=== PATIENT | female | born 1980 | race Caucasian/White ===

== ENCOUNTER 2020-01-08 08:33 | Emergency (ER) | payer MEDICAID ==
[~2020-01-08] VITALS: Ht 162.6 cm; Wt 88.5 kg
[2020-01-08] MEDS ORDERED: HYDROcodone/acetaminophen 10/325mg tab PO ONE (09:05)
[2020-01-08 09:35] LABS: BASOPHILS # (AUTO) 0.1 X10'3 (0-0.2); EOSINOPHILS # (AUTO) 0.1 X10'3 (0-0.9); HEMOGLOBIN 13.5 g/dl (12.0-16.0); LYMPHOCYTES # (AUTO) 1.5 X10'3 (1.1-4.8); MEAN CORPUSCULAR HEMOGLOBIN 30.7 PG (27.0-31.0); MEAN CORPUSCULAR HGB CONC 33.9 g/dL (33.0-36.5); MEAN PLATELET VOLUME 8.9 FL (7.4-10.4); WHITE BLOOD COUNT 6.6 X10'3 (4.5-11.0)
[2020-01-08 09:37] LABS: BASOPHILS % (AUTO) 0.8 % (0-1); EOSINOPHILS % (AUTO) 1.7 % (0-6); HEMATOCRIT 39.9 % (35.0-45.0); LYMPHOCYTES % (AUTO) 22.5 % (21-51); MEAN CORPUSCULAR VOLUME 90.5 FL (78-98); MONOCYTES # (AUTO) 0.4 X10'3 (0-0.9); MONOCYTES % (AUTO) 6.7 % (2-12); NEUTROPHILS # (AUTO) 4.5 X10'3 (1.8-7.7); NEUTROPHILS % (AUTO) 68.3 % (42-75); PLATELET COUNT 213 X10'3 (140-440); RED BLOOD COUNT 4.41 X10'6 (4.20-5.60); RED CELL DISTRIBUTION WIDTH 13.7 % (11.5-14.5)
[2020-01-08 09:53] LABS: ALANINE AMINOTRANSFERASE 16 U/L (12-78); ALBUMIN 3.8 G/DL (3.4-5.0); ALBUMIN/GLOBULIN RATIO 1.2 (1.1-1.5); ALKALINE PHOSPHATASE 58 IU/L (46-116); ANION GAP 7 (8-16); ASPARTATE AMINO TRANSFERASE 13 U/L (10-37); BILIRUBIN,TOTAL 0.3 MG/DL (0.1-1.0); BLOOD UREA NITROGEN 14 MG/DL (7-18); BUN/CREATININE RATIO 20.9 (6.6-38.0); CALCIUM 8.3 MG/DL (8.5-10.1); CHLORIDE 106 MMOL/L (99-107); CREATININE 0.67 MG/DL (0.40-0.90); GLUCOSE 92 MG/DL (70-104); SODIUM 139 MMOL/L (135-145); TOTAL CARBON DIOXIDE 25.8 MMOL/L (24-32); TOTAL PROTEIN 7.1 G/DL (6.4-8.2); eGFR > 90 ML/MIN
[2020-01-08 09:59] LABS: CLARITY,URINE SLIGHTLY CLOUDY (Clear); COLOR,URINE YELLOW (Yellow); GLUCOSE, URINE NEGATIVE (Neg); KETONES,URINE NEGATIVE (Neg); LEUKOCYTE ESTERASE ,URINE NEGATIVE (Neg); NITRITES, URINE NEGATIVE (Neg); OCCULT BLOOD,URINE MODERATE (Neg); PH,URINE 7.5 (4.8-8.0); PROTEIN,URINE NEGATIVE (Neg); UA COLLECTION TYPE CLN CATCH MIDSTREAM; URINE HCG POSITIVE (NEG); UROBILINOGEN,URINE 0.2 E.U/dL (0.2-1.0)
[2020-01-08 10:06] LABS: BACTERIA,URINE FEW /HPF (Neg); RBC,URINE 0-2 /HPF (0-2); SQUAMOUS EPITHELIAL CELL,UR FEW /LPF (FEW); WBC,URINE 0-4 /HPF (0-4)
[2020-01-08 10:35] LABS: BETA HCG,QUANTITATIVE 4184 mIU/ml
[2020-01-08 11:24] VITALS: BP 138/81
== END 2020-01-08 12:09 | disposition home or self-care (01) ==
LOC: ER 08:34
DX: O26.891 Other specified pregnancy related conditions, first trimester (principal); R10.32 Left lower quadrant pain; O00.01 Abdominal pregnancy with intrauterine pregnancy; N89.8 Other specified noninflammatory disorders of vagina; Z90.721 Acquired absence of ovaries, unilateral; Z3A.01 Less than 8 weeks gestation of pregnancy
CPT/HCPCS: 36415; 76801; 76817; 80053; 81001; 81025; 84702; 85025; 99284

== ENCOUNTER 2021-06-15 11:21 | Emergency (ER) | payer MEDICAID ==
[~2021-06-15] VITALS: Ht 162.6 cm; Wt 90.0 kg
[2021-06-15 12:51] VITALS: BP 131/92
[2021-06-15] MEDS ORDERED: ondansetron 4mg rapidly disintigrating tab PO ONE (14:05)
[2021-06-15] MEDS ORDERED: TETanus/Pertussis (Acell)/Diphther VAC/PF (Tdap-Adult) 0.5ml syringe IMVAC ONE (14:05)
[2021-06-15] MEDS ORDERED: HYDROcodone/acetaminophen 10/325mg tab PO ONE (14:05)
[2021-06-15] MEDS ORDERED: ONDA4TAB6 PO (14:15)
[2021-06-15] MEDS ORDERED: HYDR-3965 PO (14:15)
[2021-06-15] MEDS ORDERED: bacitracin 15gm ointment TP ONE (14:50)
--- NOTE | 2021-06-15 15:15 | NUR ---
went to medicate pt. only to find that she left without her tetnus shot or her pain medication and hitesh
== END 2021-06-15 15:56 | disposition home or self-care (01) ==
LOC: ER 11:22
DX: T23.172A Burn of first degree of left wrist, initial encounter (principal); X12.XXXA Contact with other hot fluids, initial encounter; Y93.89 Activity, other specified; Y92.89 Other specified places as the place of occurrence of the external cause; Y99.8 Other external cause status
CPT/HCPCS: 16000; 90471; 90715; 99283